=== PATIENT | female | born 1940 | race Caucasian/White ===

== ENCOUNTER → 2017-03-14 | Outpatient (CLI) | payer MEDICARE, OTHER ==
--- NOTE | 2017-03-14 15:19 | MAM ---
History: Well woman exam. Date of exam: 03/14/2017. Services provided: Bilateral full field digital screening mammography. CAD, the images were reviewed with R2 computer aided detection. FINDINGS: Glandular tissue is scattered glandular contour. Comparison with 2014 study. No dominant mass, architectural distortion or clustered microcalcification. IMPRESSION: Benign exam Recommendation: Routine annual mammography BIRAD CATEGORY: 2 BENIGN Electronically signed by: Harika Mercer MD 03/14/2017 3:18 PM CDT Workstation: [id number]
== END | disposition home or self-care (01) ==
LOC: MAMMO 13:13
PROVIDERS: ATTEND Family Medicine
DX: Z12.31 Encounter for screening mammogram for malignant neoplasm of breast (principal)

== ENCOUNTER → 2017-06-09 | Outpatient (CLI) | payer MEDICARE, OTHER | END | disposition home or self-care (01) | LOC: GMAM 16:39 | PROVIDERS: ATTEND Family Medicine | DX: J30.1 Allergic rhinitis due to pollen (principal) ==

== ENCOUNTER → 2017-12-08 | Outpatient (CLI) | payer MEDICARE, OTHER ==
--- NOTE | 2017-12-08 21:03 | MRI ---
EXAM DESCRIPTION: Lumbar Spine w/o Contrast MRI. CLINICAL HISTORY: LOW BACK PAIN COMPARISON: MRI scan lumbar spine 01/21/2015. TECHNIQUE: Multiplanar, multiple standard sequences, non contrast MRI, lumbar spine. FINDINGS: L5-S1: Moderate disc space loss more to the left of midline with Modic type II endplate reactive changes. Disc osteophyte complex encroaching on the left foramen which is moderately narrowed. Mild narrowing of the right foramen. Posterior elements unremarkable. L4-5: Disc desiccation and minimal disc space loss. Anterior bulging. Posterior broad-based 4 mm disc bulge to the left of midline abutting the descending left L5 nerve and narrowing the left subarticular recess. Minimal disc bulge into the left foramen which is moderately narrowed also with left facet arthrosis and bilateral ligament hypertrophy. Mild narrowing of the right foramen and moderate narrowing of the canal. L3-4: Disc desiccation with disc space maintained. Minimal anterior and posterior bulging. 7 mm disc protrusion into the left foramen which is stenotic with an encroachment on the exiting left L3 nerve. Bulge into the right foramen which is moderately narrowed. Mild to moderate canal narrowing with hypertrophy of the flavum ligaments. Facets are unremarkable. L2-3: No significant bulging. Minimal narrowing of the canal with hypertrophy of the flavum ligaments. Facets are unremarkable. Bilateral mild foraminal narrowing. L1-2: Disc desiccation. Minimal disc space loss anterior bulging and endplate ridging. No significant posterior disc bulge. Posterior elements are unremarkable. Mild bilateral foraminal narrowing with no canal narrowing. T12-L1: Normal disc and disc space. Posterior elements unremarkable. Canal and foramina are patent. Conus terminates at this level. Paravertebral soft tissues showing paraspinal muscle atrophy. 5 cm cyst left kidney unchanged. Ectasia of the abdominal aorta.. Normal marrow signal in the remaining vertebral bodies and the posterior elements. L2-L4 levoscoliosis stable. Vertebral bodies are not compressed at any level. IMPRESSION: 1. Large protrusion of the L3-4 disc into the left foramen with impingement of the left L3 nerve stable since the prior study. 2. Spondylosis L5-S1 more severe to the left of midline with near stenosis of the left foramen. 3. L4-5 disc posterior bulge to the left of midline abutting the descending left L5 nerve and narrowing the left subarticular recess. This has progressed since the prior study. Electronically signed by: Syed Casey MD 12/08/2017 9:03 PM [facility]
== END ==
LOC: MRI 12:24
PROVIDERS: ATTEND Physician Assistant Medical
DX: M51.36 Other intervertebral disc degeneration, lumbar region (principal); M54.5 Low back pain; M48.061 Spinal stenosis, lumbar region without neurogenic claudication

== ENCOUNTER → 2018-04-11 | Outpatient (CLI) | payer MEDICARE, OTHER ==
--- NOTE | 2018-04-13 09:21 | MAM ---
EXAM DESCRIPTION: 3D Screening BILATERAL : Digital Mammography. CLINICAL HISTORY: 78 years Female SCREENING . No complaints. Sister with breast cancer. Childbirth. Postmenopausal. HRT 5 or more years ago. COMPARISON: 2-D digital screening bilateral study 03/14/2017. Report from prior examination also reviewed. TECHNIQUE: Bilateral CC and MLO projection full-field images, 3-D tomosynthesis digital mammographic technique. CAD not utilized. FINDINGS: The breast parenchymal density pattern is: Scattered areas of fibroglandular density. No skin thickening or nipple retraction. Bilateral vascular calcifications and bilateral solitary microcalcifications. No new focal, stellate mass or density, focal asymmetry , and no suspicious microcalcifications bilaterally. Stable mammograms compared to prior study, taking into account differences in mammographic technique. IMPRESSION: BI-RADS CATEGORY: 2 - BENIGN FINDINGS. FOLLOW UP: Routine digital bilateral screening, one year interval from April 2018. Written communication explaining the IMPRESSION and follow-up, will be mailed to the patient and referring health care provider. According to the [employer], yearly mammograms are recommended starting at age 40 and continuing as long as a woman is in good health. Any breast change noted on a breast self-exam should be reported promptly to the patient's healthcare provider. Breast MRI is recommended for women with an approximately 20-25% or greater lifetime risk of breast cancer, including women with a strong family history of breast or ovarian cancer and women who have been treated for Hodgkin's disease. A negative mammographic report should not delay tissue diagnosis in patients with significant clinical history or physical findings. Extremely dense breast tissue limits the sensitivity of digital mammography. Electronically signed by: Syed Casey MD 04/13/2018 9:19 AM CDT
== END ==
LOC: MAMMO 13:22
PROVIDERS: ATTEND Family Medicine
DX: Z12.31 Encounter for screening mammogram for malignant neoplasm of breast (principal)

== ENCOUNTER → 2018-08-03 | Outpatient (CLI) | payer MEDICARE, OTHER ==
--- NOTE | 2018-08-03 13:26 | CT ---
EXAM DESCRIPTION: Chest w/Contrast : Computed Tomography. CLINICAL HISTORY: PULMONARY NODULE. Right upper lobe. Follow-up from recent chest x-ray. COMPARISON: Radiographs of the chest at [facility] 07/31/2018. TECHNIQUE: Spiral-axial scans at 5 x 5 mm intervals through the lungs and thorax with IV contrast. 2.5 x 5 mm lung algorithm axial reconstructions. Coronal and sagittal 2.0 Mm reconstructions. No adverse reactions. Total Exam DLP: 469.9 mGy-cm. This exam was performed according to our departmental dose-optimization program which includes automated exposure control, adjustment of the mA and/or kV according to patient size and/or use of iterative reconstruction technique; to reduce radiation dose to as low as reasonably achievable (ALARA). Nodule measurements under 10 mm are given as mean value of 3 axes diameters. FINDINGS: Lungs and airways: 5 mm groundglass versus semisolid nodule in the undersurface of the anterior horizontal fissure projecting into the lateral segment of the right middle lobe. Axial lung window series 4, image 59 and sagittal series 601, image 72. 3 mm nodule more superior and lateral in the upper lobe on image 30. Mosaic density in the bilateral lower lobe parenchyma. Bilateral parenchymal pleural scar in the posterior recess of the right lower lobe and posterior medial parenchymal pleural scars in the recess of the left lower lobe. 2 mm calcification in the inferior lingula on series 4, image 70. Pleural spaces: Focal pleural thickening in the right apex and abutting the inferior lingula. No effusion or pneumothorax. Mediastinum and Marya: Calcification between the trachea and the medial aortic arch on axial series 2, image 17. No soft tissue masses or adenopathy. Great vessels and Heart: Minimal coronary artery calcifications. Atherosclerotic calcifications of the aortic arch. Minimal calcifications in the descending aorta. Soft tissues of neck base, axillae, and chest wall: Unremarkable. Upper abdomen: Cyst in the superior lateral subcapsular lateral segment of the left hepatic lobe. Partial visualization of spleen and adrenal glands pancreas and liver otherwise unremarkable. No fluid in the included peritoneal space. Osseous structures: Spondylosis at several levels of the thoracic spine. No blastic or lytic lesions. IMPRESSION: 1. No clinically significant nodules in the lungs bilaterally. No masses or infiltrates. No pleural effusion or pneumothorax. According to [employer] Best Practice guidelines, based upon 2017 Fleischner society imaging guidelines for pulmonary nodules, the CT follow-up is recommended. Please see below.* 2. Atherosclerotic calcification in the great vessels and coronary arteries. Correlate with other cardiovascular findings. Small cyst in the left lobe of the liver. No imaging follow-up recommended. 2017 Fleischner Society Recommendations for Multiple Solid Lung Nodules Follow-Up base on size (average of long- and short-axis diameters). Use most suspicious nodule for followup. Nodule Size <6 mm Low-Risk Patient: No routine follow-up Electronically signed by: Syed Casey MD 08/03/2018 1:24 PM CDT
== END ==
LOC: CT 08:51
PROVIDERS: ATTEND Family Medicine
DX: R91.1 Solitary pulmonary nodule (principal); I70.0 Atherosclerosis of aorta

== ENCOUNTER → 2018-11-30 | Outpatient (CLI) | payer MEDICARE, OTHER | LOC: GMAM 17:18 | PROVIDERS: ATTEND Family Medicine | DX: J30.1 Allergic rhinitis due to pollen (principal); R05 Cough ==

== ENCOUNTER → 2019-01-08 | Outpatient (CLI) | payer MEDICARE, OTHER ==
--- NOTE | 2019-01-08 10:42 | RAD ---
Frontal, lateral, and oblique views of the right hand. Indication: M79.642, M79.641 Comparison: None. Impression: No acute fracture or malalignment. If there is persistent anatomic snuffbox tenderness, repeat wrist imaging to include a scaphoid view is recommended in one week to evaluate for occult scaphoid fracture. Remote ununited ulnar styloid fracture. 2 mm positive variance with subcortical cystic change of the ulnar-lunate joint indicating ulnar impaction. Mild widening scapholunate interval concerning for scapholunate ligament tear. 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 Mild osteoarthritis throughout the PIP and DIP joints of the hand as well as of the STT joint and first CMC joint. Osteopenia. If this is a new finding, DEXA scan recommended as well as evaluation for possible osteoporosis treatment. Electronically signed by: Santos Washburn MD 01/08/2019 10:38 AM CDT
--- NOTE | 2019-01-08 10:44 | RAD ---
Frontal, lateral, and oblique views of the left hand. Indication:M79.642, M79.641 Comparison: None. Impression: No acute fracture or malalignment. If there is persistent anatomic snuffbox tenderness, repeat wrist imaging to include a scaphoid view is recommended in one week to evaluate for occult scaphoid fracture. Moderate osteoarthritis STT joint and first CMC joint with mild changes throughout the PIP and DIP joints of the hand. Millimetric well-corticated ossification noted along the ulnar margin of the hamate and may be posttraumatic or degenerative in etiology. Osteopenia. If this is a new finding, DEXA scan recommended as well as evaluation for possible osteoporosis treatment. Electronically signed by: Santos Washburn MD 01/08/2019 10:40 AM CDT
== END ==
LOC: RAD 09:24
PROVIDERS: ATTEND Orthopaedic Surgery
DX: M19.041 Primary osteoarthritis, right hand (principal); M19.042 Primary osteoarthritis, left hand; M19.031 Primary osteoarthritis, right wrist; M85.841 Other specified disorders of bone density and structure, right hand; M85.842 Other specified disorders of bone density and structure, left hand

== ENCOUNTER → 2019-05-30 | Outpatient (CLI) | payer MEDICARE, OTHER | LOC: MAMMO 09:47 | PROVIDERS: ATTEND Family Medicine | DX: Z12.31 Encounter for screening mammogram for malignant neoplasm of breast (principal) ==

== ENCOUNTER → 2020-06-23 | Outpatient (CLI) | payer MEDICARE, OTHER ==
--- NOTE | 2020-06-23 14:45 | MRI ---
MRI right humerus without contrast INDICATION: Arm pain attention tricep no specific injury TECHNIQUE: Noncontrast MR imaging right humerus/upper arm FINDINGS: No soft tissue mass or adenopathy. No destructive osseous lesion. No tricep injury noted. No bicep rupture proximal. The distal bicep is not completely imaged but there is no edema to suggest bicep injury. Slight posterior decentering of the humerus at the shoulder. No subscapularis rupture or retraction. There is bursal edema in the shoulder consider dedicated MRI shoulder if clinically indicated. Overall no acute process identified in the humeral region IMPRESSION: No acute process right humerus/upper arm Mild bursitis in the right shoulder consider dedicated MRI if clinically warranted No evidence of tricep injury Electronically signed by: Grover Perla MD 06/23/2020 2:44 PM CDT
== END ==
LOC: MRI 07:52
PROVIDERS: ATTEND Family Medicine
DX: M75.51 Bursitis of right shoulder (principal)

== ENCOUNTER → 2020-06-24 | Outpatient (CLI) | payer MEDICARE, OTHER ==
--- NOTE | 2020-06-24 14:35 | US ---
US HEAD NECK SOFT TISSUE CLINICAL STATEMENT:80 years Female HYPERCALCEMIA. COMPARISON: None TECHNIQUE: Transcutaneous scanning, grayscale and Doppler modes. FINDINGS: Size right thyroid lobe: 3.7 x 1.7 x 1.7 cm Size left thyroid lobe: 3.1 x 1.5 x 1.4 cm Size isthmus: 0.24 cm Estimated total number of nodules greater than or equal to 1 cm: 1.. Bilateral lobes are homogeneous. Nodule 1: Size: 1.2 x 1.2 x 1.1 cm Location: Right Mid Composition: solid or almost completely solid: 2 points Echogenicity: hypoechoic: 2 points Shape: wider than tall: 0 points Margins: smooth: 0 points Echogenic foci: none: 0 points ACR Total Points: 4; ACR TI-RADS risk category: TR4 - moderately suspicious nodule. Nodule 2: Size: 0.9 x 0.7 x 0.6 cm Location: Left Lower Composition: solid or almost completely solid: 2 points Echogenicity: hypoechoic: 2 points Shape: wider than tall: 0 points Margins: smooth: 0 points Echogenic foci: none: 0 points ACR Total Points: 4; ACR TI-RADS risk category: TR4 - moderately suspicious nodule. Nodule 3: Size: 0.8 X 0.6 x 0.3 cm Location: Right Lower Composition: cystic or completely cystic: 0 points Echogenicity: anechoic: 0 points Shape: wider than tall: 0 points Margins: smooth: 0 points Echogenic foci: none: 0 points ACR Total Points: 0; ACR TI-RADS risk category: TR1 - benign nodule Soft Tissue: No dominant solid mass, no distinct cyst, no large calcifications. No fluid collection. IMPRESSION: 1. Nodule 1: ACR TI-RADS 2017 Category TR4. Recommend: Follow-up ultrasound in 1 year.. Recommendations based upon [employer] Best Practice recommendations and ACR TI-RADS 2017 guidelines. Please see below*. 2. Nodule 2: ACR TI-RADS 2017 Category TR4. Recommend: No further follow-up. 3. Nodule 3: ACR TI-RADS 2017 Category TR1. Recommend: No further follow-up. 4. Soft tissue around the thyroid gland is unremarkable. *ACR TI-RADS 2017 Recommendations for imaging follow-up of nodules (baseline study): TR1: No FNA or follow up TR2: No FNA or follow up TR3: FNA if >/= 2.5 cm, follow up if 1.5 - 2.4 cm in 1, 3, and 5 years TR4: FNA if >/= 1.5 cm, follow up if 1.0 - 1.4 cm in 1, 2, 3, and 5 years TR5: FNA if >/= 1.0 cm, follow up if 0.5 - 0.9 cm every year for 5 years ACR TI-RADS recommends that no more than two nodules with the highest ACR TI-RADS total point should be biopsied and no more than four nodules should be followed. These recommendations do not apply to patients with increased risk for thyroid cancer or patients with symptomatic thyroid disease. Electronically signed by: Syed Casey MD 06/24/2020 2:34 PM CDT
== END ==
LOC: US 09:42
PROVIDERS: ATTEND Family Medicine
DX: E83.52 Hypercalcemia (principal); E04.2 Nontoxic multinodular goiter

== ENCOUNTER → 2020-07-03 | Outpatient (CLI) | payer MEDICARE, OTHER | LOC: GMAM 10:02 | PROVIDERS: ATTEND Family Medicine | DX: R53.83 Other fatigue (principal); E83.52 Hypercalcemia ==